=== PATIENT | female | born 1975 | race Caucasian/White ===

== ENCOUNTER 2016-04-30 07:02 | Emergency (ER) | payer OTHER ==
[2016-04-30] MEDS ORDERED: 0.9 % SODIUM CHLORIDE 1,000 ML IV ONE ×2 (07:12→08:39)
--- NOTE | 2016-04-30 07:19 | ED Physician Documentation ---
General Adult - HISTORIAN Historian: patient - HPI Stated Complaint: elevated glucose Chief Complaint: General Adult Onset: hours Timing: still present Severity: moderate Further Comments: yes (Pt is a 40 yo female with Diabetes Type I who presents obtunded with elevated blood glucose. Pt was last seen by before he went to work at 3 pm yesterday. Pt returned home at 6 am and found pt obtunded with out of range high reading on glucometer. Pt was given 35 units insulin SC prior to arrival in ER by her . Pt had dental extreaction yesterday and is taking amoxicillin.) - ROS CONST: other (Pt unable to give ROS) - PAST HX Past History: other (DMI, HTN, Hypothyroidism, ) Allergies/Adverse Reactions: Allergies Allergy/AdvReac Type Severity Reaction Status Date / Time No Known Allergies Allergy Verified 04/30/16 08:02 Home Medications: Ambulatory Orders Medication Instructions Recorded Citalopram Hydrobromide [Celexa] 40 mg PO DAILY 04/04/15 Insulin Glargine,Hum.rec.anlog 40 units SQ HS 04/04/15 [Lantus] Insulin NPL/Insulin Lispro 0 units SQ TID 04/04/15 [Humalog Mix 50-50 Vial] Levothyroxine Sodium [Unithroid] 200 mcg PO DAILY 04/04/15 Lisinopril [Prinivil] 5 mg PO QD 04/04/15 Amoxicillin [Amoxil] 500 mg PO TID 04/30/16 Gabapentin [Gabapentin] 600 mg PO HS 04/30/16 - SOCIAL HX Smoking History: cigarettes - FAMILY HX Family History: No - VITAL SIGNS Vital Signs: Vital Signs Temp Pulse Resp BP Pulse Ox 137/60 04/04/15 12:16 - REVIEWED ASSESSMENTS Nursing Assessment Reviewed: Yes Vitals Reviewed: Yes Progress - Progress Progress: VBG: pH=6.8; pCO2=17; pO2=56. RR=28 1 L NS bolus insulin drip @ 3 units/hr bear huggar warming blanket Bicarbonate 1 amp (50) IV for VBG pH=6.8 NS 1 L IVF NS 1 L IVF Ns 1 L IVF @ 125 cc/hr glucose 668-->592 after 30 min change insulin drip to 2 units/hr. Zosyn 3.375 g IV in ER Vancomycin 1 gm IV started in ER and continued en route to [facility]. Dr. Healy. - EKG/XRAY/CT XRAY: chest (L perihilar and L lower lobe infiltrate.) ED Results Lab/Radiology - Orders Orders: ED Orders Category Date Time Status Arterial Blood Gas 1T Care 04/30/16 07:11 Active ACETONE Stat Lab 04/30/16 Ordered CBC/PLATELET/DIFF Routine Lab 04/30/16 Ordered CMP Routine Lab 04/30/16 Ordered OSMOLALITY, SERUM Stat Lab 04/30/16 Ordered UA [URINALYSIS] Routine Lab 04/30/16 Ordered 0.9 % Sodium Chloride [Normal Saline] 1,000 ml Med 04/30/16 07:12 Active IV Q1H General Adult Physical Exam - PHYSICAL EXAM GENERAL APPEARANCE: moderate distress EENT: eye inspection normal, dry mucous membranes NECK: normal inspection, supple RESPIRATORY: no resp distress, chest non-tender, rales (L lung chance) CVS: reg rate & rhythm, heart sounds normal ABDOMEN: soft, no organomegaly, decreased BS BACK: normal inspection, no CVA tenderness SKIN: warm/dry, normal color EXTREMITIES: non-tender, normal range of motion NEURO: other (responds to painful stimuli; opens eyes) Discharge Clincal Impression: Pneumonia Qualifiers: Pneumonia type: due to unspecified organism Laterality: left Lung location: lower lobe of lung Qualified Code(s): J18.9 - Pneumonia, unspecified organism DKA (diabetic ketoacidoses) Qualifiers: Diabetes mellitus type: type 1 Diabetes mellitus complication detail: without coma Qualified Code(s): E10.10 - Type 1 diabetes mellitus with ketoacidosis without coma Referrals: Aletha Bradford FNP [Primary Care Provider] - Home Medications: Ambulatory Orders Citalopram Hydrobromide [Celexa] 40 mg PO DAILY 04/04/15 Insulin Glargine,Hum.rec.anlog [Lantus] 40 units SQ HS 04/04/15 Insulin NPL/Insulin Lispro [Humalog Mix 50-50 Vial] 0 units SQ TID 04/04/15 Levothyroxine Sodium [Unithroid] 200 mcg PO DAILY 04/04/15 Lisinopril [Prinivil] 5 mg PO QD 04/04/15 Amoxicillin [Amoxil] 500 mg PO TID 04/30/16 Gabapentin [Gabapentin] 600 mg PO HS 04/30/16 Condition: Fair Disposition: 02 XFER SHT-TRM HOSP Decision to Admit: NO Decision Time: 09:32
[2016-04-30] MEDS ORDERED: POTASSIUM CHLORIDE 20 MEQ TABLET.ER PO ONE (07:27)
[2016-04-30] MEDS ORDERED: SODIUM BICARBONATE 50 MEQ/50 ML SYRINGE IV ONE (07:34)
[2016-04-30] MEDS ORDERED: 0.9 % SODIUM CHLORIDE 100 ML IV ONE (07:34)
[2016-04-30] MEDS ORDERED: INSULIN REGULAR, HUMAN 100 UNIT/ML 3ML VIAL ONE (07:35)
[2016-04-30] MEDS ORDERED: INSULIN REGULAR, HUMAN 100 UNIT in 0.9 % SODIUM CHLORIDE 100 ML IV ONE ×2 (07:38)
[2016-04-30] MEDS ORDERED: 0.9 % SODIUM CHLORIDE 1,000 ML with POTASSIUM CHLORIDE 40 MEQ IV SCH ×2 (08:00)
[2016-04-30 08:37] LABS: MEAN CORPUSCULAR HEMOGLOBIN 29.9 pg (28.0-34.0)
[2016-04-30 08:41] LABS: eGFR (African) > 60; eGFR (Non-African) 40
[2016-04-30 08:53] LABS: MONOCYTES % 1 % (0-11); SEGMENTED NEUTROPHILS % 79 % (39-79)
[2016-04-30 08:55] LABS: APPEARANCE,URINE Clear (CLEAR); COLOR,URINE Yellow (YELLOW); OCCULT BLOOD,URINE Trace-intact (NEGATIVE); UROBILINOGEN URINE 0.2 Eu (0.2-1.0)
[2016-04-30 08:57] LABS: AMORPHOUS SEDIMENT,UR FEW (NEGATIVE)
[2016-04-30] MEDS ORDERED: PIPERACILLIN SODIUM/TAZOBACTAM 3.375 GM VIAL IV ONE (09:13)
[2016-04-30] MEDS ORDERED: 0.9 % SODIUM CHLORIDE 50 ML IV ONE (09:14)
[2016-04-30] MEDS ORDERED: VANCOMYCIN HCL 1 GM in 0.9 % SODIUM CHLORIDE 500 ML IV ONE (09:35)
[2016-04-30] MEDS ORDERED: 0.9 % SODIUM CHLORIDE 1,000 ML IV SCH (10:00)
[2016-04-30 10:25] VITALS: BP 91/49
[2016-04-30] MEDS ORDERED: PIPERACILLIN SODIUM/TAZOBACTAM 3.375 GM in 0.9 % SODIUM CHLORIDE 50 ML IV SCH (12:00)
--- NOTE | 2016-04-30 15:47 | Diagnostic Imaging Report ---
[facility] [address] [facility].[address] [id number] Report Submission Date: Apr 30, 2016 9:17:19 AM CONTRACT ADMINISTRATION SPECIALIST Patient Study Name: MONTEZ STEPHEN Date: Apr 30, 2016 8:42:39 AM CONTRACT ADMINISTRATION SPECIALIST Modality Type: CR Gender: F Description: CHEST : 71 Institution: [facility] Physician RADHA MCCLURE - ER Portable upright radiograph the chest CLINICAL HISTORY: Altered mental status pneumonia COMPARISON: None TECHNIQUE: AP portable upright radiograph of the chest 0842 hr FINDINGS: There is a dense peripheral infiltrate in the left lung. There is left perihilar infiltrate and left lower lobe infiltrate. The left hilum is enlarged. The left heart border is indistinct. The right lung field is hyperinflated but clear. The bony thorax is unremarkable IMPRESSION: Extensive left lung infiltrate greatest in the periphery. Enlarged left hilum Clear hyperinflated right lung . Electronically signed on Apr 30, 2016 9:17:19 AM CONTRACT ADMINISTRATION SPECIALIST by: Torres SMITH
[2016-05-03 09:29] LABS: PCO2 VENOUS 17 mmHG (40-60); PO2 VENOUS 56 mmHg (30-55)
== END 2016-04-30 10:11 | disposition short-term general hospital (02) ==
LOC: ED 07:02
DX: J18.9 Pneumonia, unspecified organism (principal); E10.10 Type 1 diabetes mellitus with ketoacidosis without coma
CPT/HCPCS: 36415; 36600; 51702; 71010; 80053; 80320; 81002; 83930; 85025; 87040; J1815; J2543; J3370; J7030; J7060; 82805; 96361; 96365; 96366; 96375; 99283; G0480; S1016